=== PATIENT | male | born 1995 | race Hispanic/Latino ===

== ENCOUNTER 2020-10-03 07:12 | Emergency (ER) | payer OTHER ==
[~2020-10-03] VITALS: Ht 177.8 cm; Wt 91.0 kg
--- NOTE | 2020-10-03 09:04 | REP ---
INDICATION: left testicular pain and swelling COMPARISON: None. TECHNIQUE: Lobo scale and color Doppler evaluation using linear and curved array transducer with color Doppler evaluation. FINDINGS: Left testicular and epididymal hyperemia is compatible with acute epididymitis/orchitis. The right testicle and kidney appear normal. No hydroceles. No varicoceles. Right testicle measures 4.3 x 2.2 x 2.7 cm. Left testicle measures 4.3 x 2.5 x 2.7 cm. IMPRESSION: Acute left-sided epididymitis/orchitis. <Electronically signed by Spike Reddy > 10/03/20 0900
[2020-10-03] MEDS ORDERED: DOXY100C37 PO (09:23)
[2020-10-03] MEDS ORDERED: cefTRIAXone 500MG VIAL (J0696 PER 250MG) IM ONE (09:25)
[2020-10-03] MEDS ORDERED: LIDOCAINE 1% SDV 5ML VIAL DILUENT ONE (09:25)
[2020-10-03 10:04] VITALS: BP 121/74
== END 2020-10-03 10:08 | disposition home or self-care (01) ==
LOC: M ED 07:12
DX: N45.1 Epididymitis (principal); N45.2 Orchitis
CPT/HCPCS: 76870; 81001; 87086; 87490; 87590; 87661; 93976; 96372; 99283; J0696

== ENCOUNTER 2021-05-06 08:46 | Emergency (ER) | payer OTHER ==
[~2021-05-06] VITALS: Ht 175.3 cm; Wt 92.5 kg
[~2021-05-06 08:46] MED LIST: DOXY-443 PO
[2021-05-06 08:47] VITALS: BP 120/58
--- OUTSIDE RECORDS SUMMARY | 2021-05-06 08:51 | CCD ---
Author Author [facility] Address Unknown Phone Unavailable Support Name Relationship Address Phone [facility] Next Of Kin [address] [place] [address] Unavailable [place] Next Of Kin [address] [id number] Re-disclosure Warning The records that you are about to access may contain information from federally-assisted alcohol or drug abuse programs. If such information is present, then the following federally mandated warning applies: This information has been disclosed to you from records protected by federal confidentiality rules (42 CFR part 2). The federal rules prohibit you from making any further disclosure of this information unless further disclosure is expressly permitted by the written consent of the person to whom it pertains or as otherwise permitted by 42 CFR part 2. A general authorization for the release of medical or other information is NOT sufficient for this purpose. The Federal rules restrict any use of the information to criminally investigate or prosecute any alcohol or drug abuse patient.The records that you are about to access may contain highly sensitive health information, the redisclosure of which is protected by Article 27-F of the [facility] Public Health law. If you continue you may have access to information: Regarding HIV / AIDS; Provided by facilities licensed or operated by the [facility] Office of Mental Health; or Provided by the [facility] Office for People With Developmental Disabilities. If such information is present, then the following [facility] mandated warning applies: This information has been disclosed to you from confidential records which are protected by state law. State law prohibits you from making any further disclosure of this information without the specific written consent of the person to whom it pertains, or as otherwise permitted by law. Any unauthorized further disclosure in violation of state law may result in a fine or custodial sentence or both. A general authorization for the release of medical or other information is NOT sufficient authorization for further disc losure. Immunizations Vaccine Date Status Description Data Source(s) COVID-19 VACCINE Moderna 01/03/2021 12:00:00 AM EDT completed [facility] Vaccine Series Complete: YESThis Data wa s Submitted to [facility] Via [employer]. COVID-19 VACCINE Moderna 12/04/2020 12:00:00 AM EDT completed [facility] Vaccine Series Complete: NOThis Data was Submitted to [facility] Via [employer]. Medications No Information Insurance Providers Payer name Policy type / Coverage type Policy ID Covered democrat ID Covered democrat's relationship to posada Policy Posada Plan Information [facility] ACTIVE DUTY [id number] Problems, Conditions, and Diagnoses No Information Surgeries/Procedures No Information Results No Information Social History No Information
--- OUTSIDE RECORDS SUMMARY | 2021-05-06 10:45 | CCD ---
Author Author [facility] Address Unknown Phone Unavailable Support Name Relationship Address Phone [facility] Next Of Kin [address] [address] Unavailable [place] Next Of Kin [address] [place] [address] Re-disclosure Warning The records that you are [...] is protected by Article 27-F of the [facility] Public Health law. If you continue you may have access to information: Regarding HIV / AIDS; Provided by facilities licensed or operated by the [facility] Office of Mental Health; or Provided by the [facility] Office for People With Developmental Disabilities. If such information is present, then the following [facility] mandated warning applies: This information has [...] law may result in a fine or fci sentence or both. A general authorization for the release of medical or other information is NOT sufficient authorization for further disc losure. Immunizations Vaccine Date Status Description Data Source(s) COVID-19 VACCINE Moderna 01/03/2021 12:00:00 AM EDT completed [facility] Vaccine Series Complete: YESThis Data wa s Submitted to [facility] Via [employer]. COVID-19 VACCINE Moderna 12/04/2020 12:00:00 AM EDT completed [facility] Vaccine Series Complete: NOThis Data was Submitted to [facility] Via [employer]. Medications No Information Insurance Providers Payer name Policy type / Coverage type Policy ID Covered alliance party ID Covered alliance party's relationship to posada Policy Posada Plan Information [facility] ACTIVE DUTY [id number] Problems, Conditions, and Diagnoses No Information Surgeries/Procedures No Information Results No Information Social History No Information
--- NOTE | 2021-05-06 11:34 | REP ---
INDICATION: right lower rib pain after lifting weights. COMPARISON: None. TECHNIQUE: Four views right ribs, frontal view chest. FINDINGS: No evidence of right rib fracture or bone lesion. No infiltrate, pneumothorax or pleural effusion is seen. The heart and mediastinum are unremarkable. IMPRESSION: No radiographic evidence of right rib abnormality. <Electronically signed by Peterson Lobo > 05/06/21 1268
[2021-05-06] MEDS ORDERED: MOBI4TAB PO (12:16)
[2021-05-06] MEDS ORDERED: CYCL-707 PO (12:16)
[2021-05-06] MEDS ORDERED: IBUP80TA PO (12:16)
== END 2021-05-06 13:05 | disposition home or self-care (01) ==
LOC: M ED 08:46
DX: R07.89 Other chest pain (principal)

== ENCOUNTER 2021-06-21 13:48 | Emergency (ER) | payer OTHER ==
[~2021-06-21] VITALS: Ht 175.3 cm; Wt 93.5 kg
[~2021-06-21 13:48] MED LIST changes: +CYCL-707 PO; +IBUP80TA PO; +MOBI4TAB PO
--- OUTSIDE RECORDS SUMMARY | 2021-06-21 13:55 | CCD ---
Author Author [facility] Organization [facility] Address Unknown Phone Unavailable Support Name Relationship Address Phone [facility] Next Of Kin [address] [place] [address] Unavailable [place] Next [place] [address] [place] [address] [place] [address] [address] [place] [address] Unavailable Re-disclosure Warning The records that you are [...] is protected by Article 27-F of the [facility] Public Health law. If you continue you may have access to information: Regarding HIV / AIDS; Provided by facilities licensed or operated by the [facility] Office of Mental Health; or Provided by the [facility] Office for People With Developmental Disabilities. If such information is present, then the following [facility] mandated warning applies: This information has been [...] law may result in a fine or intermediate sentence or both. A general authorization for the release of medical or other information is NOT sufficient authorization for further disc losure. Immunizations Vaccine Date Status Description Data Source(s) COVID-19 VACCINE Moderna 01/03/2021 12:00:00 AM EDT completed [employer] Vaccine Series Complete: YESThis Data wa s Submitted to [facility] Via [employer]. COVID-19 VACCINE Moderna 12/04/2020 12:00:00 AM EDT completed MTSISens[employer] Vaccine Series Complete: NOThis Data was Submitted to [facility] Via [employer]. Medications No Information Insurance Providers Payer name Policy type / Coverage type Policy ID Covered green party ID Covered green party's relationship to posada Policy Posada Plan Information [facility] ACTIVE DUTY [id number] Problems, Conditions, and Diagnoses No Information Surgeries/Procedures No Information Results No Information Social History No Information
[2021-06-21] MEDS ORDERED: BACT800T5 PO (16:46)
--- OUTSIDE RECORDS SUMMARY | 2021-06-21 17:06 | CCD ---
Author Author [facility] Organization [facility] Address Unknown Phone Unavailable Support Name Relationship Address Phone [facility] Next Of Kin [address] [place] [address] Unavailable [place] Next Of Kin [address] [place] [address] [place] [address] [address] [place] [address] Unavailable Re-disclosure Warning The records that you [...] is protected by Article 27-F of the [facility] Public Health law. If you continue you may have access to information: Regarding HIV / AIDS; Provided by facilities licensed or operated by the [facility] Office of Mental Health; or Provided by the [facility] Office for People With Developmental Disabilities. If such information is present, then the following [facility] mandated warning applies: This information has been [...] law may result in a fine or retirement sentence or both. A general authorization for the release of medical or other information is NOT sufficient authorization for further disc losure. Immunizations Vaccine Date Status Description Data Source(s) COVID-19 VACCINE Moderna 01/03/2021 12:00:00 AM EDT completed [employer]pp[employer]ath[employer] Vaccine Series Complete: YESThis Data wa s Submitted to [facility] Via [employer]. COVID-19 VACCINE Moderna 12/04/2020 12:00:00 AM EDT completed KYS[employer]ath[employer]ee Vaccine Series Complete: NOThis Data was Submitted to [facility] Via [employer]. Medications No Information Insurance Providers Payer name Policy type / Coverage type Policy ID Covered libertarian ID Covered libertarian's relationship to posada Policy Posada Plan Information [facility] ACTIVE DUTY [id number] Problems, Conditions, and Diagnoses No Information Surgeries/Procedures No Information Results No Information Social History No Information
[2021-06-21 17:09] VITALS: BP 131/64
== END 2021-06-21 17:09 | disposition home or self-care (01) ==
LOC: M ED 13:48
DX: K61.1 Rectal abscess (principal)

== ENCOUNTER 2022-06-01 11:44 | Emergency (ER) | payer OTHER ==
[~2022-06-01] VITALS: Ht 180.3 cm; Wt 93.2 kg
[~2022-06-01 11:44] MED LIST changes: +BACT800T5 PO
[2022-06-01 11:47] VITALS: BP 128/82
[2022-06-01] MEDS ORDERED: NS 1,000 ML IV ONE (15:25)
[2022-06-01 16:38] LABS: BASO % 0.3 % (0.0-1.0); EOS % 0.4 % (0.0-3.0); HEMATOCRIT 41.2 % (42.0-52.0); HEMOGLOBIN 13.2 g/dl (13.5-17.5); LYMPH # 1.3 10^3/uL (1.5-5.0); LYMPH % 19.4 % (24.0-44.0); MEAN CORPUSCULAR HEMOGLOBIN 27.8 pg (27.0-33.0); MEAN CORPUSCULAR VOLUME 86.7 fl (80.0-96.0); MONO # 0.6 10^3/uL (0.0-0.8); MONO % 8.8 % (2.0-8.0); NEUTROPHILS # 4.8 10^3/uL (1.5-8.5); NEUTROPHILS % 70.8 % (36.0-66.0); PLATELET COUNT, AUTOMATED 279 10^3/uL (150-450); RED BLOOD COUNT 4.75 10^6/uL (4.30-6.10); WHITE BLOOD COUNT 6.8 10^3/uL (4.0-10.0)
[2022-06-01 17:10] LABS: RSV AMPLIFICATION NEGATIVE (NEGATIVE)
[2022-06-01 17:14] LABS: ERYTHROCYTE SEDIMENTATION RATE 64 mm/hr (0-15)
[2022-06-01] MEDS ORDERED: ISOVUE-370 76% 100ML VIAL As Ordered ONE (17:16)
[2022-06-01 17:28] LABS: ALBUMIN 3.6 GM/DL (3.2-5.2); ALT/SGPT 22 U/L (12-78); BILIRUBIN,DIRECT 0.2 MG/DL (0.0-0.2); BILIRUBIN,TOTAL 0.5 MG/DL (0.2-1.0); C REACTIVE PROTEIN QUANTITATIV 7.61 MG/DL (0.00-0.30); FREE T4 1.23 NG/DL (0.76-1.46); TOTAL PROTEIN 8.5 GM/DL (6.4-8.2)
[2022-06-01 17:40] LABS: TOTAL PROTEIN,RANDOM URINE 27.1 MG/DL (0.0-12.0)
[2022-06-01 17:42] LABS: RHEUMATOID FACTOR QUANT < 10.0 IU/ML (<15.0); URIC ACID 3.6 MG/DL (3.5-7.2)
[2022-06-01 17:59] LABS: MONO SCRN NEGATIVE (NEGATIVE)
[2022-06-03 23:09] LABS: ANA (HEP2) Positive (.)
== END 2022-06-01 18:43 | disposition home or self-care (01) ==
LOC: M ED 11:44
DX: M25.59 Pain in other specified joint (principal); R22.43 Localized swelling, mass and lump, lower limb, bilateral

== ENCOUNTER 2022-08-18 12:01 | Emergency (ER) | payer OTHER ==
[~2022-08-18] VITALS: Ht 177.8 cm; Wt 90.9 kg
[2022-08-18] MEDS ORDERED: XARE1TAB (12:10)
[2022-08-18] MEDS ORDERED: FOLI1TAB11 (12:10)
[2022-08-18] MEDS ORDERED: GABA-282 (12:10)
[2022-08-18] MEDS ORDERED: METH2.5T48 (12:10)
[2022-08-18] MEDS ORDERED: ASPIRIN 81MG CHEW TABLET PO ONE (14:00)
[2022-08-18 14:30] LABS: BASO % 0.3 % (0.0-1.0); EOS # 0.1 10^3/uL (0.0-0.5); EOS % 1.3 % (0.0-3.0); HEMATOCRIT 38.6 % (42.0-52.0); HEMOGLOBIN 12.1 g/dl (13.5-17.5); LYMPH # 0.5 10^3/uL (1.5-5.0); LYMPH % 13.5 % (24.0-44.0); MEAN CORPUSCULAR HEMOGLOBIN 26.7 pg (27.0-33.0); MEAN CORPUSCULAR HGB CONC 31.3 g/dl (32.0-36.5); MONO # 0.2 10^3/uL (0.0-0.8); MONO % 3.8 % (2.0-8.0); NEUTROPHILS # 3.2 10^3/uL (1.5-8.5); NEUTROPHILS % 80.3 % (36.0-66.0); PLATELET COUNT, AUTOMATED 331 10^3/uL (150-450); RED BLOOD COUNT 4.54 10^6/uL (4.30-6.10); WHITE BLOOD COUNT 3.9 10^3/uL (4.0-10.0)
[2022-08-18] MEDS ORDERED: ISOVUE-370 76% 100ML VIAL As Ordered ONE (14:39)
[2022-08-18 14:43] LABS: INR 1.04; PROTHROMBIN TIME 13.8 SECONDS (12.5-14.5)
[2022-08-18 14:51] LABS: ALBUMIN 3.1 G/DL (3.2-5.2); ALKALINE PHOSPHATASE 63 U/L (46-116); ALT/SGPT 39 U/L (7.0-40); AST/SGOT 33 U/L (<34); BILIRUBIN,DIRECT 0.1 MG/DL (<0.4); BILIRUBIN,TOTAL 0.3 MG/DL (0.3-1.2); BLOOD UREA NITROGEN 12 MG/DL (9-23); CALCIUM LEVEL 8.3 MG/DL (8.5-10.1); CARBON DIOXIDE LEVEL 28 MMOL/L (20-31); CHLORIDE LEVEL 102 MMOL/L (98-107); CK-MB VALUE MASS < 1.0 NG/ML (<3.6); CREATININE FOR GFR 0.72 MG/DL (0.70-1.30); GLOMERULAR FILTRATION RATE > 60.0 (>60); GLUCOSE, FASTING 90 MG/DL (60-100); POTASSIUM SERUM 4.2 MMOL/L (3.5-5.1); SODIUM LEVEL 136 MMOL/L (136-145); TOTAL PROTEIN 7.9 G/DL (5.7-8.2)
[2022-08-18 14:55] LABS: CPK CREATINE PHOSPHOKINASE 34 U/L (46-171); MB/CK RELATIVE INDEX 2.94 (< OR =4)
[2022-08-18 14:58] VITALS: BP 123/67
== END 2022-08-18 15:37 | disposition home or self-care (01) ==
LOC: M ED 13:35
DX: R07.89 Other chest pain (principal); Z86.711 Personal history of pulmonary embolism; Z90.49 Acquired absence of other specified parts of digestive tract; Z87.891 Personal history of nicotine dependence; Z79.01 Long term (current) use of anticoagulants; Z79.899 Other long term (current) drug therapy

== ENCOUNTER → 2022-09-01 | Outpatient (CLI) | payer OTHER ==
[~2022-09-01] MED LIST changes: +FOLI1TAB11; +GABA-282; +METH2.5T48; +XARE1TAB
[2022-09-01 11:40] LABS: HEMATOCRIT 39.2 % (42.0-52.0); HEMOGLOBIN 12.1 g/dl (13.5-17.5); MEAN CORPUSCULAR HEMOGLOBIN 26.4 pg (27.0-33.0); MEAN CORPUSCULAR HGB CONC 30.9 g/dl (32.0-36.5); MEAN CORPUSCULAR VOLUME 85.4 fl (80.0-96.0); PLATELET COUNT, AUTOMATED 304 10^3/uL (150-450); RED BLOOD COUNT 4.59 10^6/uL (4.30-6.10); WHITE BLOOD COUNT 3.8 10^3/uL (4.0-10.0)
[2022-09-01 12:04] LABS: FERRITIN 440.9 NG/ML (10.5-307.3)
[2022-09-01 12:06] LABS: PERCENT SATURATION 18.9 % (19.7-50.0)
== END ==
LOC: M PLALAB 08:04
PROVIDERS: ATTEND Internal Medicine Hematology
DX: I26.93 Single subsegmental thrombotic pulmonary embolism without acute cor pulmonale (principal); D64.9 Anemia, unspecified

== ENCOUNTER → 2022-09-17 | Outpatient (CLI) | payer OTHER | LOC: M RAD 11:12 | PROVIDERS: ATTEND Internal Medicine Hematology | DX: I26.93 Single subsegmental thrombotic pulmonary embolism without acute cor pulmonale (principal) ==